=== PATIENT | female | born 1980 | race Hispanic/Latino ===

== ENCOUNTER 2017-08-05 11:30 | Inpatient (IN) | payer OTHER ==
[2017-08-05 12:31] LABS: BHCG - Serum Negative (NEGATIVE); Pregs Control Background? CLEAR/WHITE (CLR/WHITE); Pregs Control Bar Appear? YES (CONTROL BAR)
[2017-08-05] MEDS ORDERED: Fentanyl 100 MCG/2 ML VIAL ONE ×3 (12:42→16:38)
[2017-08-05] MEDS ORDERED: Midazolam HCl 2 mg/2 ml Vial ONE (13:08)
[2017-08-05] MEDS ORDERED: Lidocaine 1% w/Epinephrine 1:200K 30 ML VIAL ONE (13:21)
[2017-08-05] MEDS ORDERED: Succinylcholine Chloride 20 MG/ML 10 ml SYRINGE FS ONE (14:38)
[2017-08-05] MEDS ORDERED: Labetalol 100 MG/20 ML MDV ONE (14:38)
[2017-08-05] MEDS ORDERED: Ondansetron HCl/PF 4 MG/2 ML Vial ONE (14:38)
[2017-08-05] MEDS ORDERED: Lidocaine 1% PF 5 ML VIAL ONE (14:38)
[2017-08-05] MEDS ORDERED: Esmolol 100 MG/10 ML VIAL ONE (14:38)
[2017-08-05] MEDS ORDERED: PROPOFOL 200 MG/20 ML VIAL ONE (14:38)
[2017-08-05] MEDS ORDERED: Dexamethasone 20 MG/5 ML VIAL ONE (14:38)
[2017-08-05] MEDS ORDERED: Ondansetron HCl/PF 4 MG/2 ML Vial IVP PRN (16:04)
[2017-08-05] MEDS ORDERED: Morphine Sulfate 2 MG/ML SYRINGE SLOW IVP PRN (16:04)
[2017-08-05] MEDS ORDERED: Promethazine HCl 25 MG/ML VIAL SLOW IVP PRN ×2 (16:04→17:47)
[2017-08-05] MEDS ORDERED: Promethazine HCl 25 MG/ML VIAL IM PRN (16:04)
[2017-08-05] MEDS ORDERED: HYDROcodone/Acetaminophen 7.5/325 mg Tablet PO PRN (17:46)
[2017-08-05] MEDS ORDERED: Morphine 2 MG/ML SYRINGE SLOW IVP PRN (17:46)
[2017-08-05 18:46] VITALS: BMI 27.6
[2017-08-05] MEDS: D5 1/4 NS 1,000 ML IV SCH (20:42)
[2017-08-05] MEDS: HYDROcodone/Acetaminophen 7.5/325 mg Tablet PO PRN (21:04)
[2017-08-06] MEDS: HYDROcodone/Acetaminophen 7.5/325 mg Tablet PO PRN ×2 (02:17→08:07)
[2017-08-06] MEDS ORDERED: Levothyroxine Sodium 100 MCG TAB PO SCH (06:00)
[2017-08-06] MEDS: D5 1/4 NS 1,000 ML IV SCH (06:32)
[2017-08-06 08:15] VITALS: BP 110/70; TEMP 98.2
--- NOTE | 2017-08-09 13:17 | OP ---
DATE OF PROCEDURE: 08/05/2017 PREOPERATIVE DIAGNOSES: Graves' disease. POSTOPERATIVE DIAGNOSES: Graves' disease. PROCEDURE PERFORMED: Total thyroidectomy with laryngeal nerve monitoring. SURGEON: Dr. Anup Laguerre PROCEDURE IN DETAIL: After consent was obtained, the patient was identified, brought to the operatin g room and placed on the table in supine position. General endotracheal anesthesia with laryngeal ne rve monitoring endotracheal tube was obtained. The patient was positioned for surgery. The patient was prepped and draped with the patient in the supine position. We then proceeded with surgery. We identified the natural skin crease and made an incision after it was infiltrated with 1% lidocaine wi th 1:100,000 epinephrine. The skin incision was carried down through the skin, subcutaneous tissues. We then transected the platysma muscle and raised subplatysmal inferiorly and superiorly based subp latysmal flaps and placed a self-retaining retractor. The strap muscles were then divided in midline and the thyroid was dissected between the strap muscles and the thyroid capsule. We then methodical ly retracted the left thyroid medially and identified the inferior, middle, and superior vessels and suture ligated them. We then identified the recurrent laryngeal nerve and the parathyroid glands and cautiously dissected the thyroid away from the vital structures. Ultimately, the thyroid capsule an d the thyroid ligament was transected and we turned our attention to the contralateral side where vilma ntical findings were encountered. Again, the superior and middle and inferior vessels were divided a nd suture ligated. The recurrent laryngeal nerve was identified as were the parathyroid glands and c aution was used not to injure them while we dissected thyroid from the pretracheal plane. Ultimately the thyroid ligament was transected and the thyroid was liberated and mobilized and delivered from t he wound. Hemostasis was then obtained and Valsalva was performed to make sure no additional bleedin g was encountered. Self-contained suction drain was then placed and sutured through the skin, suture secured, and the wound was closed in layers with Monocryl to close the platysma and the subcutaneous tissue and 6-0 Prolene for the skin. A sterile bandage was applied. The patient was awakened, extu bated, and taken to recovery where she remained in stable condition prior to discharge home.
== END 2017-08-06 09:40 | DRG 627 ==
LOC: SDC 11:30 → SURG B 18:00
PROVIDERS: ADMIT Specialist; ATTEND Specialist
PROC: 0GTK0ZZ Resection of Thyroid Gland, Open Approach (ICD-10-PCS; principal; 2017-08-05)
DX: E05.00 Thyrotoxicosis with diffuse goiter without thyrotoxic crisis or storm (principal)
CPT/HCPCS: 36415; 82310; 84703; 85014; 88307; J1100; J2001; J2250; J2405; J2550; J2704; J3010; J7042